=== PATIENT | male | born 1980 ===

== ENCOUNTER 2021-02-18 17:24 | Emergency (ER) | payer SELFPAY ==
[2021-02-18 20:36] LABS: Basophils # (Auto) 0.2 K/mm3 (0.0-0.1); Basophils % (Auto) 1.5 % (0.0-1.8); Eosinophils # (Auto) 0.2 K/mm3 (0.0-0.4); Eosinophils % (Auto) 1.5 % (0.0-4.3); Hematocrit 52.4 % (35.5-45.6); Hemoglobin 17.7 gm/dl (11.8-15.2); Lymphocytes # (Auto) 2.6 K/mm3 (1.2-5.4); Lymphocytes % (Auto) 21.6 % (13.4-35.0); Mean Corpuscular HGB Conc 34 % (32-34); Mean Corpuscular Volume 92 fl (84-94); Monocytes # (Auto) 0.9 K/mm3 (0.0-0.8); Monocytes % (Auto) 7.7 % (0.0-7.3); Platelet Count 239 K/mm3 (140-440); Red Cell Distribution Width 14.4 % (13.2-15.2)
[2021-02-18 20:55] LABS: Bilirubin,Urine NEG (Negative); Blood,Urine NEG (Negative); Color,Urine Yellow (Yellow); Protein,Urine <15 mg/dL mg/dL (Negative); Urobilinogen,Urine < 2.0 mg/dL (<2.0); WBC,Urine < 1.0 /HPF (0.0-6.0)
[2021-02-18 21:00] LABS: Alanine Aminotransferase 32 units/L (7-56); Albumin 4.4 g/dL (3.9-5); BUN/Creatinine Ratio 21; Blood Urea Nitrogen 17 mg/dL (9-20); Calcium 8.7 mg/dL (8.4-10.2); Hemolysis Index 30
--- NOTE | 2021-02-18 21:12 | Emergency Department Report ---
ED Abdominal Pain HPI - General Chief Complaint: Urogenital-Male Stated Complaint: STOMACH PAIN Source: patient Mode of arrival: Ambulatory Limitations: Language Barrier - History of Present Illness Initial Comments: Patient is a 40-year-old male with the no past medical history presents to the ED with complaint of acute onset persistent left lower quadrant pain that radiates to the left flank, left inguinal and left testicle for the last 2 days. Patient states the pain is especially worse with movement or any lifting. Patient also complains of dysuria, urine frequency and urgency. Patient denies hematuria, penile discharge, traumatic injury, heavy lifting, fall, nausea and vomiting, fever, chills, cough, diarrhea, abdominal pain, chest pain or shortness of breath and back pain. MD Complaint: abdominal pain (LLQ pain), other (left inguinal and testicular pain) -: Sudden, days(s) (2) Location: LLQ, suprapubic Radiation: LLQ, other (left inguinal and testicular area) Migration to: no migration Severity scale (0 -10): 6 Quality: aching, sharp Consistency: constant Improves With: nothing Worsens With: movement Associated Symptoms: nausea, other (urinary urgency, dysuria). denies: vomiting, diarrhea, fever, chills, constipation, dysuria, hematemesis, hematochezia, melena, anorexia, syncope - Related Data Previous Rx's Medication Instructions Recorded Last Taken Type Famotidine [Pepcid] 20 mg PO BID #60 tablet 10/02/19 Unknown Rx Naproxen 500 mg PO Q12H PRN #24 tablet 02/18/21 Unknown Rx Cyclobenzaprine [Flexeril] 10 mg PO Q8H PRN #21 tablet 02/19/21 Unknown Rx Allergies Allergy/AdvReac Type Severity Reaction Status Date / Time No Known Allergies Allergy Verified 02/18/21 20:16 ED Review of Systems ROS: Stated complaint: STOMACH PAIN Other details as noted in HPI Constitutional: denies: chills, fever Eyes: denies: eye pain, eye discharge, vision change ENT: denies: ear pain, throat pain Respiratory: denies: cough, shortness of breath, wheezing Cardiovascular: denies: chest pain, palpitations Endocrine: no symptoms reported Gastrointestinal: abdominal pain (llq), nausea. denies: diarrhea Genitourinary: frequency, testicular pain (left), other (left iguinal ). denies: urgency, dysuria Musculoskeletal: denies: back pain, joint swelling, arthralgia Skin: denies: rash, lesions Neurological: denies: headache, weakness, paresthesias Psychiatric: denies: anxiety, depression Hematological/Lymphatic: denies: easy bleeding, easy bruising ED Past Medical Hx - Past Medical History Previous Medical History?: No - Social History Smoking Status: Never Smoker Substance Use Type: None - Medications Home Medications: Home Medications Medication Instructions Recorded Confirmed Last Taken Type Famotidine [Pepcid] 20 mg PO BID #60 tablet 10/02/19 Unknown Rx Naproxen 500 mg PO Q12H PRN #24 tablet 02/18/21 Unknown Rx Cyclobenzaprine [Flexeril] 10 mg PO Q8H PRN #21 tablet 02/19/21 Unknown Rx ED Physical Exam - General Limitations: Language Barrier General appearance: alert, in no apparent distress - Head Head exam: Present: atraumatic, normocephalic, normal inspection - Eye Eye exam: Present: normal appearance, PERRL, EOMI Pupils: Present: normal accommodation - ENT ENT exam: Present: normal exam, normal orophraynx, mucous membranes moist, TM's normal bilaterally, normal external ear exam - Neck Neck exam: Present: normal inspection, full ROM - Respiratory Respiratory exam: Present: normal lung sounds bilaterally. Absent: respiratory distress, wheezes, rales, rhonchi, chest wall tenderness, accessory muscle use, decreased breath sounds, prolonged expiratory - Cardiovascular Cardiovascular Exam: Present: regular rate, normal rhythm, normal heart sounds. Absent: systolic murmur, diastolic murmur, rubs, gallop - GI/Abdominal GI/Abdominal exam: Present: soft, tenderness (LLQ tenderness), normal bowel sounds. Absent: guarding, rebound, hyperactive bowel sounds, hypoactive bowel sounds, organomegaly - Extremities Exam Extremities exam: Present: normal inspection, full ROM, normal capillary refill - Back Exam Back exam: Present: normal inspection, full ROM. Absent: tenderness, CVA tenderness (R), CVA tenderness (L), muscle spasm, paraspinal tenderness - Neurological Exam Neurological exam: Present: alert, oriented X3, CN II-XII intact, normal gait, reflexes normal - Psychiatric Psychiatric exam: Present: normal affect, normal mood - Skin Skin exam: Present: warm, dry, intact, normal color. Absent: rash ED Course Vital Signs 02/18/21 20:13 Temperature 98.5 F Pulse Rate 80 Respiratory 20 Rate Blood Pressure 171/109 O2 Sat by Pulse 97 Oximetry ED Medical Decision Making - Lab Data Result diagrams: 02/18/21 20:21 02/18/21 20:21 - Radiology Data Radiology results: report reviewed, image reviewed [facility] [address] [place] [id number] Cat Scan Report Signed Patient: CRISTINA VALENTINO MR# : [id number] : 1980 Acct:[id number] Age/Sex: 40 / M ADM Date: 02/18/21 Loc: ED Attending Dr: Ordering Physician: AIRAM STANTON Date of Service: 02/18/21 Procedure(s): CT abdomen pelvis w con Accession Number(s): [id number] cc: AIRAM STANTON CTA ABDOMEN AND PELVIS WITHOUT AND WITH CONTRAST INDICATION / CLINICAL INFORMATION: LLQ pain, Left testicular and groin pain. TECHNIQUE: Axial CT images were obtained through the abdomen and pelvis before and after after injection of IV contrast. 3 plane MIP / 3D reconstructions were produced. All CT scans at this location are performed using CT dose reduction for ALARA by means of automated exposure control. COMPARISON: None available. FINDINGS: AORTA: No significant abnormality. RENAL ARTERIES: No significant abnormality. CELIAC ARTERY: No significant abnormality. SUPERIOR MESENTERIC ARTERY: No significant abnormality. INFERIOR MESENTERIC ARTERY: No significant abnormality. RIGHT ILIAC ARTERIES: No significant abnormality.. LEFT ILIAC ARTERIES: No significant abnormality.. ADDITIONAL FINDINGS: No focal abnormality of the left inguinal region or left groin.. SKELETAL: No significant abnormality. IMPRESSION: 1. No significant abnormality. No focal abnormality of the left inguinal region. Signer Name: Wojciech Wong MD Signed: 02/18/2021 9:53 PM Workstation Name: [id number] Transcribed By: SB Dictated By: WOJCIECH WONG MD Electronically Authenticated By: WOJCIECH WONG MD Signed Date/Time: 02/18/212152 DD/ 50 TD/TT: --------- [facility] [address] [place] [address] Ultrasound Report Signed Patient: CRISTINA VALENTINO MR# : [id number] : 1980 Acct:[id number] Age/Sex: 40 / M ADM Date: 02/18/21 Loc: ED Attending Dr: Ordering Physician: AIRAM STANTON Date of Service: 02/18/21 Procedure(s): US testicular doppler comp Accession Number(s): [id number] cc: AIRAM STANTON Scrotal ultrasound INDICATION: Left scrotal pain COMPARISON: None FINDINGS: Both testicles appear within normal limits with good blood flow seen. No epididymal abnormalities are seen. A minimal right hydrocele is seen. IMPRESSION: No significant abnormalities are seen Signer Name: Facundo Ghosh MD Signed: 02/19/2021 2:30 AM Workstation Name: [id number] Transcribed By: GJ Dictated By: Facundo Ghosh MD Electronically Authenticated By: Facundo Ghosh MD Signed Date/Time: 02/19/21229 DD/ 8 TD/TT: - Medical Decision Making This is a 40-year-old male with the no past medical history presents to the ED with complaint of acute onset persistent left lower quadrant pain that radiates to the left flank, left inguinal and left testicle for the last 2 days. Patient states the pain is especially worse with movement or any lifting. Patient also complains of dysuria, urine frequency and urgency. In the ED, patient is alert and oriented x3 and is not in any distress. Patient was treated for pain in the ED and also given antiemetics. Lab test results were reviewed and showed acute leukocytosis of 12,100. The rest of the lab test results are nonactionable including urinalysis. The abdomen pelvis CT scan with contrast showed no acute abnormalities. The testicular ultrasound showed no acute abnormalities, torsion or epididymitis. On reevaluation, patient's pain is well controlled medications. Patient will discharge home on medications for pain, suspecting that patient's symptoms are likely due to muscle spasm or muscle strain of left inguinal area. Patient was therefore discharged home on pain medications and muscle relaxants and advised to follow-up with his primary care physician in 5 to 7 days for reevaluation or return to the ED immediately i f symptoms get worse. - Differential Diagnosis Diverticulitis; UTI; Kidney stones; Pyelonephritis; STD; Epididymitis Critical care attestation.: If time is entered above; I have spent that time in minutes in the direct care of this critically ill patient, excluding procedure time. ED Disposition Clinical Impression: Acute abdominal pain in left lower quadrant Disposition: 01 HOME / SELF CARE / HOMELESS Is pt being admited?: No Does the pt Need Aspirin: No Condition: Stable Additional Instructions: Todos los resultados de las pruebas de laboratorio fueron revisados ??y no son factibles. La tomografa computarizada de abdomen y pelvis con contraste no mostr alteraciones agudas. La ecografa de los testculos tampoco revel anomalas ni torsin testicular ni signos de epididimitis o infeccin. Por lo tanto, es probable que gladys sntomas se deban a randell distensin de los msculos musculoesquelticos de la karmen inguinal izquierda. Por lo tanto, tome analgsicos y relajantes musculares grady se recomienda, jefferson muchos lquidos y consulte con azul mdico de atencin primaria en 7 a 10 hathaway para randell reevaluacin. Regrese al servicio de urgencias de inmediato si los sntomas empeoran. Prescriptions: Cyclobenzaprine [Flexeril] 10 mg PO Q8H PRN #21 tablet PRN Reason: Muscle Spasm Naproxen 500 mg PO Q12H PRN #24 tablet PRN Reason: Pain , Severe (7-10) Referrals: [facility] [Provider Group] - 3-5 Days Time of Disposition: 22:14 Print Language: THAI
--- NOTE | 2021-02-18 21:57 | Cat Scan Report ---
CTA ABDOMEN AND PELVIS WITHOUT AND WITH CONTRAST INDICATION / CLINICAL INFORMATION: LLQ pain, Left testicular and groin pain. TECHNIQUE: Axial CT images were obtained through the abdomen and pelvis before and after after inject ion of IV contrast. 3 plane MIP / 3D reconstructions were produced. All CT scans at this location are performed using CT dose reduction for ALARA by means of automated exposure control. COMPARISON: None available. FINDINGS: AORTA: No significant abnormality. RENAL ARTERIES: No significant abnormality. CELIAC ARTERY: No significant abnormality. SUPERIOR MESENTERIC ARTERY: No significant abnormality. INFERIOR MESENTERIC ARTERY: No significant abnormality. RIGHT ILIAC ARTERIES: No significant abnormality.. LEFT ILIAC ARTERIES: No significant abnormality.. ADDITIONAL FINDINGS: No focal abnormality of the left inguinal region or left groin.. SKELETAL: No significant abnormality. IMPRESSION: 1. No significant abnormality. No focal abnormality of the left inguinal region. Signer Name: Wojciech Wong MD Signed: 02/18/2021 9:53 PM Workstation Name: [id number]
--- NOTE | 2021-02-19 02:34 | Ultrasound Report ---
Scrotal ultrasound INDICATION: Left scrotal pain COMPARISON: None FINDINGS: Both testicles appear within normal limits with good blood flow seen. No epididymal abnorma lities are seen. A minimal right hydrocele is seen. IMPRESSION: No significant abnormalities are seen Signer Name: Facundo Ghosh MD Signed: 02/19/2021 2:30 AM Workstation Name: [id number] [id number]
[2021-02-19 04:19] VITALS: BP 150/72
== END 2021-02-19 04:11 | disposition home or self-care (01) ==
LOC: ED 17:24
DX: R10.32 Left lower quadrant pain (principal); R30.0 Dysuria; R35.0 Frequency of micturition
CPT/HCPCS: 36415; 74177; 80053; 81001; 85025; 93975; 99284; Q9967